=== PATIENT | female | born 1985 | race Caucasian/White ===

== ENCOUNTER 2016-12-08 16:09 | Emergency (ER) | payer OTHER, BC ==
[2016-12-08 16:16] VITALS: BP 109/76; PULSE 76; RESP 16; TEMP 98.1; O2SAT 97
[2016-12-08] MEDS ORDERED: IBUPROFEN 600 MG TAB PO ONE (16:39)
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
[2016-12-08] MEDS ORDERED: LIDOCAINE 5% 1 EA PATCH TD ONE (16:47)
[2016-12-08] MEDS ORDERED: PATCH REMOVAL 1 EA PATCH TD SCH (21:00)
[2016-12-09] MEDS ORDERED: LIDOCAINE 5% 1 EA PATCH TD SCH (09:00)
== END 2016-12-08 17:00 | disposition home or self-care (01) ==
DX: S16.1XXA Strain of muscle, fascia and tendon at neck level, initial encounter (principal); F17.200 Nicotine dependence, unspecified, uncomplicated; V89.2XXA Person injured in unspecified motor-vehicle accident, traffic, initial encounter; Y92.410 Unspecified street and highway as the place of occurrence of the external cause; Y93.89 Activity, other specified